=== PATIENT | female | born 1965 | race Caucasian/White ===

== ENCOUNTER 2021-06-15 17:50 | Outpatient (CLI) | payer BC ==
--- NOTE | 2021-06-16 12:39 | XRAY Report ---
PROCEDURE: Abdomen 1 View X-Ray INDICATIONS: ABDOMINAL PX TECHNIQUE: 1 view of the abdomen was acquired. COMPARISON: None. FINDINGS: Surgical changes and devices: None. Bowel: No pneumoperitoneum. Nonspecific bowel gas pattern. Soft tissues: No masses; visualized solid organ contours appear normal in size. No suspicious abdom inal calcifications. Bones: No suspicious bony abnormalities. IMPRESSION: Nonobstructive bowel gas pattern. Reviewed by: Jayro Perez MD on 06/16/2021 12:37 PM [facility] Approved by: Jayro Perez MD on 06/16/2021 12:37 PM [facility] Station ID: [id number]
== END 2021-06-15 23:59 | disposition home or self-care (01) ==
LOC: DI.N 17:50
PROVIDERS: ATTEND Physician Assistant Medical
DX: R10.9 Unspecified abdominal pain (principal); Z20.822 Contact with and (suspected) exposure to COVID-19

== ENCOUNTER 2022-01-01 08:00 | Outpatient (CLI) | payer OTHER ==
--- NOTE | 2022-01-01 15:32 | XRAY Report ---
PROCEDURE: Cervical Spine 2 View INDICATIONS: NECK PAIN AFTER FALL FROM HORSE 1 WEEK AGO TECHNIQUE: 3 view(s) of the cervical spine were acquired. COMPARISON: None. FINDINGS: Bones: No fractures or dislocations to the 71 level. The lateral masses of C1 appear intact on the odontoid view. No suspicious bony lesions. There is slight reversal cervical curvature with apex at C5-6. Mild disc space narrowing is present at C5-6, C6-7. Mild scattered multilevel uncovertebral hy pertrophy is present. Soft tissues: No prevertebral soft tissue swelling. IMPRESSION: Early degenerative changes as above. No visualized acute fracture or dislocation. However, occult injury cannot be excluded. Recommend chayo rt interval imaging follow-up in 7-10 days as clinically indicated for additional evaluation. Reviewed by: Geovanna Campos MD on 01/01/2022 3:31 PM PDT Approved by: Geovanna Campos MD on 01/01/2022 3:31 PM PDT Station ID: [id number]
== END 2022-01-01 23:59 | disposition home or self-care (01) ==
LOC: DI.N 08:00
PROVIDERS: ATTEND Registered Nurse
DX: M47.812 Spondylosis without myelopathy or radiculopathy, cervical region (principal)